=== PATIENT | male | born 1980 | race African-American/Black ===

== ENCOUNTER → 2017-02-02 | Outpatient (CLI) | payer MEDICARE, OTHER ==
[~2017-02-02] MED LIST: ATOR20TA58 PO; ATOR40TA PO; CYCL10TA2 PO; DICL75TA PO; FLUT16SP2 NS; HYDR-2762 PO; LITH300T3 PO
--- NOTE | 2017-02-08 23:16 | SLEEP ---
DATE OF STUDY: 02/02/2017 ATTENDING PHYSICIAN: Dr. Mynor Cooper The patient is a 36 years old who weighs 200 pounds with a BMI of 32. The patient had a history of sleep apnea diagnosed previously, but he could not use the CPAP, as a result it was taken away by his insurance. The patient returned to the sleep lab for another sleep study. This was a split night study. During the night study, the patient spent 450 minutes in bed and slept for 426 minutes with a normal sleep efficiency of 95%. Sleep latency was short at 1 minute with a REM latency of 76 minutes. Overall, sleep architecture showed increased stage I sleep, normal stage II sleep, normal slow wave and increased REM sleep. During the initial diagnostic portion of the study, the patient slept for 143 minutes. During this time, there were 169 obstructive apneas, no mixed or central apneas. There were 34 hypopneas. The patient's apnea hypopnea index was 85 per hour, supine index of 85 per hour as well. The patient slept supine throughout. REM AHI was 132 per hour. Review of nocturnal oximetry study revealed mean oxygen saturation of 94% with the lowest of 74%. A 11% time oxygen saturation remained between 80% and 89% and 3% time between 70 and 79%. The nocturnal hypoxia was predominantly during REM sleep. EKG monitoring revealed normal sinus rhythm. There was sweat artifact throughout. Average heart rate was 87 beats per minute. No sustained arrhythmias were observed. No PLMS seen. The patient met the criteria for CPAP initiation. It was started at 7 cm of water and titrated up to a maximum of 20 cm of water. Despite this high pressure the patient's respiratory events persisted, as a result, he was switched to BiPAP starting at 22/15 until a final pressure of 30/18 was reached. At that pressure, the patient slept for 38 minutes. Supine sleep was seen throughout. No REM sleep was observed. AHI was reduced to 2 per hour and oxygen saturation remained above 96%. The patient used a medium size full face mask. IMPRESSION: 1. Severe sleep apnea-hypopnea syndrome with an AHI of 85 per hour. 2. Nocturnal hypoxia secondary to obstructive sleep apnea, but resolved with BiPAP. 3. No clinically significant periodic limb movements in sleep. RECOMMENDATIONS: 1. BiPAP at 30/18 completely eliminated the patient's sleep apnea, should be used on a nightly basis. 2. Follow up in 4-6 weeks to assess compliance with BiPAP and to document clinical improvement. 3. Weight loss is strongly advised. 4. Avoid [employer] depressants. 5. Caution regarding driving until symptoms of sleep apnea resolve with the use of BiPAP. KALI GIRON MD DR: SHARI/jillian JOB#: [id number] / [id number] adriel Cooper, GIANFRANCO
== END | disposition home or self-care (01) ==
LOC: EDSTATUS 18:30 → RT 18:47
PROVIDERS: ATTEND Family Medicine
DX: G47.33 Obstructive sleep apnea (adult) (pediatric) (principal)
CPT/HCPCS: 95810

== ENCOUNTER → 2018-02-07 | Outpatient (CLI) | payer MEDICARE, OTHER | END | disposition home or self-care (01) | LOC: KCIC MRI 13:42 | DX: M48.061 Spinal stenosis, lumbar region without neurogenic claudication (principal); M51.27 Other intervertebral disc displacement, lumbosacral region; M51.47 Schmorl's nodes, lumbosacral region | CPT/HCPCS: 72148 ==

== ENCOUNTER → 2018-10-19 | Outpatient (CLI) | payer OTHER ==
[~2018-10-19] MED LIST changes: +DOCU100C28 PO; -HYDR-2762 PO; +HYDR-2765 PO; +HYDR-3135 PO; +IOHEXOL 180 MG/ML 10 ML VIAL. ONE; +LAMO150T2 PO; +METF500T16 PO; +QUET50TA5 PO; +TEST5GEL TP; +VALP250S3 PO; +methylPREDNISolone ACETATE 40 MG/ML VIAL. ONE; +methylPREDNISolone ACETATE 80 MG/ML VIAL. ONE
--- NOTE | 2018-10-19 23:18 | PAIN ---
DATE OF SERVICE: 10/19/2018 INITIAL CONSULTATION FOR PAIN CLINIC CHIEF COMPLAINT: Low back and bilateral lower extremity pain, left greater than right. HISTORY OF PRESENT ILLNESS: This is a 38-year-old male who presents with history of pain since about 2000, not a result of any specific injury or action he is aware of, but the pain in the low back, bilateral lower extremities, mostly in the posterior gluteus, posterior thighs, much greater on the left than the right, worse over the past year or so. The patient is on physical therapy. He is doing water therapy currently. Has had multiple bouts of this over the years, is still doing exercise and water therapy currently. The patient reports the pain is waking him from sleep at least twice at night and affects his bowel or bladder control as well, but no incontinence. The patient reports he has difficulty walking because his legs do get weak, especially the left side fatigues much more easily. It is worse with walking, standing, changing positions, getting up from a sitting position, better with lying down, but again awakens him from sleep at night at least twice. The patient reports the pain is constant, sharp in the back, shooting in the lower extremities with numbness and tingling in the legs, worse in the evenings later in the day when he is inactive and has a cold sensation as well in the low back, posterior gluteus, left thigh greater than right, left posterior calf on occasion and tingling into the feet, but worse with walking. No loss of motor function, but significant fatigability of the left lower extremity greater than the right, where he has stumbled, but has not fallen from the pain and increased fatigue in the legs. The patient did have an MRI scan of the lumbar spine showing L5-S1 shallow broad-based left paracentral disk protrusion with minimal extrusion superimposed on disk bulge, endplate remodeling resulting in minimal right and mild left foraminal stenosis with abutment of the exiting left L5 nerve root and slight effacement of the left lateral recess with abutment of the traversing left S1 nerve root. The patient rates his disability rate from 0-10, 10 being the worst, is a 7 with family home responsibilities, recreation, 6 with social activity and life support activities, 8 with sexual behavior, 5 with occupation, 4 with self-care activities. PAST MEDICAL HISTORY: Significant for type 2 diabetes, arthritis, cigarette smoking 1-1/2 packs a day, continues to smoke for the past 25 years. PREVIOUS SURGERY: Includes a bowel resection in 2016. CURRENT MEDICATIONS: Include Seroquel, lamotrigine, hydrocodone, atorvastatin, Flonase, cyclobenzaprine and diclofenac. ALLERGIES: The patient has no known drug allergies. FAMILY HISTORY: Significant for no major medical problems or conditions that he is aware of. SOCIAL HISTORY: The patient reports he drinks alcohol about 6 beers every 3 days. Smokes one and a half packs of cigarettes, has for 25 years. He is single, has no children, living at home, lives locally in [place], [place]. Reports he is currently on disability, not related to his current pain issue. REVIEW OF SYSTEMS: The patient's review of systems is positive for those items mentioned in history of present illness. All systems reviewed and otherwise negative. It is complete, full and well documented on the patient's chart. PHYSICAL EXAMINATION: VITAL SIGNS: Today, the patient's blood pressure is 145/93, pulse 80, respirations 18, temperature 98.3 degrees Fahrenheit, height 64 inches, weighs pounds. GENERAL: The patient is awake, alert, oriented, appropriate, very pleasant demeanor. HEENT: Shows normocephalic, atraumatic. Extraocular movements intact and symmetrical. Oral cavity: Mucous membranes moist and pink. Dentition is intact. NECK: Shows anterior throat supple without palpable lymphadenopathy noted. Swallow reflex is symmetrical. CHEST: Shows normal with inspection. Breath sounds are clear to auscultation bilaterally. HEART: Shows S1, S2 clear. No murmurs auscultated. ABDOMEN: Obese, soft, nontender, nondistended. No palpable organomegaly is noted. No rebound or guarding demonstrated. BACK: Shows spine grossly in the midline. Normal appearing thoracic kyphosis and lumbar lordotic curvature. Lumbar paraspinous muscle shows symmetrical on inspection, on palpation shows some moderate tenderness diffusely throughout the upper, middle and lower distribution of paraspinous muscles and only diffusely without radiation. The patient's back shows good rotation of motion both laterally greater than 10 degrees right and left as well as extension greater than 10 degrees, forward flexion 45 degrees without significant pain reported. EXTREMITIES: The patient's lower extremity showed deep tendon reflexes at 1+ in the patellar and tendo-calcaneus tendons are equal. Motor exam is strong with 5/5 dorsiflexion and extension on the right and 4/5 on the left. Quadriceps and hamstring flexion is 5/5 and equal and symmetrical. Peripheral pulses are 1+ posterior tibia and dorsalis pedis pulses. No peripheral edema is noted. Lower extremities are warm and dry to the touch, equal in color and appearance. The patient's straight leg raise noted to be slightly positive on the left side at about 40 degrees, decreased with knee flexion, right side is negative. Gaenslen's and Kel's maneuvers are negative bilaterally. The patient is able to stand, stand on his toes without difficulty or loss of balance, able to heel toe walk without balance loss as well. The patient not using any assistive device such as canes or walkers to ambulate and with a normal appearing gait for short distance in the office today. SKIN: Shows warm and dry, good turgor. No edema. No sores, rashes or bruising. IMPRESSION: 1. This is a 38-year-old male with long history of low back, bilateral lower extremity pain, left greater than right. 2. MRI scan of lumbar spine as noted. 3. Type 2 diabetes. 4. Cigarette smoking. 5. Arthritis. PLAN: Options were discussed with the patient including conservative medical management, physical therapy, interventional technique and he elected to proceed with interventional techniques. We discussed lumbar epidural steroid injection using description as well as anatomic models to describe the procedure. Risks were then discussed including, but not limited to bleeding, infection, possibility of epidural hematoma, subsequent neurologic compromise, dural puncture, headaches, spinal cord and/or nerve damage, side effects of steroid medication and poor results regarding pain control. The patient understands and wished to proceed. The patient will return to clinic in approximately 2 weeks for followup, was counseled on return appointment, activity level, and side effects to be aware of. DIAGNOSES: Lumbar radiculopathy with lumbar degenerative disk disease, lumbar spinal stenosis. PROCEDURE: Lumbar epidural steroid injection, translaminar approach at L5-S1 level using C-arm fluoroscopic guidance under sterile prep and drape using local anesthetic. MEDICATION INJECTED: A total of 120 mg Depo-Medrol plus 10 mL of preservative-free normal saline and 2 mL of Isovue for contrast. CONDITION AT DISCHARGE: Stable. The patient tolerated the procedure well, had no complications. VANIA BARAJAS MD DR: SILVIA/jillian JOB#: [id number] / [id number] Mynor Austin MD
== END | disposition home or self-care (01) ==
LOC: PNCL 10:15
PROVIDERS: ATTEND Anesthesiology
DX: M51.16 Intervertebral disc disorders with radiculopathy, lumbar region (principal); M48.061 Spinal stenosis, lumbar region without neurogenic claudication; E11.9 Type 2 diabetes mellitus without complications; M19.90 Unspecified osteoarthritis, unspecified site; F17.210 Nicotine dependence, cigarettes, uncomplicated; Z90.49 Acquired absence of other specified parts of digestive tract; Z79.899 Other long term (current) drug therapy; Z79.84 Long term (current) use of oral hypoglycemic drugs; Z72.89 Other problems related to lifestyle
CPT/HCPCS: 62323; J1030; J1040; Q9965

== ENCOUNTER → 2018-11-10 | Outpatient (CLI) | payer OTHER ==
[~2018-11-10] MED LIST changes: -IOHEXOL 180 MG/ML 10 ML VIAL. ONE; -methylPREDNISolone ACETATE 40 MG/ML VIAL. ONE; -methylPREDNISolone ACETATE 80 MG/ML VIAL. ONE
--- NOTE | 2018-11-10 11:20 | KCIC ---
MRI Lumbar Spine without contrast History: Spinal stenosis of lumbar region, chronic low back pain, recent epidurals, bilateral lower extremity pain Technique: Multiplanar, multi sequential noncontrast MR imaging was performed of the lumbar spine. Comparison: February 07, 2018 Findings: There is mild motion. Lumbar vertebral body stature is overall maintained other than small Schmorl's nodes L5-S1. AP alignment is within normal limits. There is again mild degenerative disc disease at L5-S1. There is posterior annular tear L5-S1 more apparent on this exam. There is no new significant marrow edema. Conus terminates at L1. L1-L2, L2-3: These levels were not included on the axial images, spinal canal and neural foramina adequate. L3-L4: There is minimal buckling of the ligamentum flavum. Spinal canal and neural foramina are adequate. L4-L5: There is again mild facet degenerative change and buckling of the ligamentum flavum. There is minimal fluid in the facet articulations. Spinal canal is adequate. Left neural foramen is adequate. There is very mild narrowing of the inferior right neural foramen greater distally by negligible disc osteophyte complex. L5-S1: There is slightly more prominent posterior protrusion and small extrusion extending slightly below the intervertebral disc space, overall dimension about 0.5 cm AP by 0.6 cm CC, component of protrusion up to 2 1.3 cm transverse. There is mild indentation upon the ventral thecal sac greater in the left lateral recess with contact of the descending left S1 nerve root as seen previously without significant displacement. This is also near the descending right S1 nerve root without significant impingement. Spinal canal is overall adequate. There is [id number] narrowing of left neural foramen due to disc osteophyte complex overall similar. Right neural foramen is adequate. Impression: 1. There is slightly more prominent protrusion/small extrusion at L5-S1, contact of the descending left S1 nerve root as seen previously and near descending right S1 nerve root without significant displacement or new significant spinal stenosis at this level. There is again dzjl-hw-fkzsyuyi narrowing of the left L5-S1 neural foramen primarily from disc osteophyte complex. There is again mild degenerative disc disease at L5-S1. Posterior annular tear L5-S1 is more apparent on this exam. Electronically signed by: Lloyd Nolan MD (11/10/2018 11:16 AM) [id number]
== END | disposition home or self-care (01) ==
LOC: KCIC MRI 10:02
PROVIDERS: ATTEND Family Medicine
DX: M51.37 Other intervertebral disc degeneration, lumbosacral region (principal); M48.061 Spinal stenosis, lumbar region without neurogenic claudication
CPT/HCPCS: 72148

== ENCOUNTER 2020-02-05 21:03 | Inpatient (IN) | payer OTHER ==
[~2020-02-05] VITALS: Ht 170.2 cm; Wt 90.4 kg
[~2020-02-05 21:03] MED LIST changes: -LAMO150T2 PO; +LAMO150T4 PO
[2020-02-05 21:28] LABS: BASO # 0.1 x10^3/uL (0.0-0.2); BASO % 1 % (0-3); EOS % 0 % (0-3); HEMATOCRIT 47.3 % (39.0-53.0); HEMOGLOBIN 15.9 g/dL (13.0-17.5); LYMPH # 1.3 x10^3/uL (1.0-4.8); LYMPH % 14 % (24-48); MEAN CORPUSCULAR HEMOGLOBIN 34 pg (25-35); MEAN CORPUSCULAR HGB CONC 34 g/dL (31-37); MEAN CORPUSCULAR VOLUME 101 fL (79-100); MONO # 0.7 x10^3/uL (0.0-1.1); MONO % 7 % (0-9); NEUT # 7.4 x10^3/uL (1.8-7.7); NEUT % 78 % (31-73); PLATELET COUNT 307 x10^3/uL (140-400); RED BLOOD COUNT 4.67 x10^6/uL (4.30-5.70); RED CELL DISTRIBUTION WIDTH 13.7 % (11.5-14.5); WHITE BLOOD COUNT 9.5 x10^3/uL (4.0-11.0)
[2020-02-05 21:41] LABS: BILIRUBIN,URINE NEGATIVE (NEG); CLARITY,URINE CLEAR; COLOR,URINE YELLOW; NITRITE,URINE NEGATIVE (NEG); PH,URINE 5.5 (<5.0-8.0); PROTEIN,URINE NEGATIVE (NEG-TRACE); UROBILINOGEN,URINE 0.2 mg/dL (0.2 mg/dL)
[2020-02-05 21:51] LABS: BACTERIA,URINE 0 /HPF (0-FEW); RBC,URINE 0 /HPF (0-2); WBC,URINE 0 /HPF (0-4)
[2020-02-05 21:54] LABS: ALBUMIN 3.7 g/dL (3.4-5.0); ALBUMIN/GLOBULIN RATIO 0.8 (1.0-1.7); CALCIUM 9.5 mg/dL (8.5-10.1); CREATININE 1.9 mg/dL (0.7-1.3); GFR 47.7; POTASSIUM 5.4 mmol/L (3.5-5.1); TOTAL BILIRUBIN 0.6 mg/dL (0.2-1.0); TOTAL PROTEIN 8.4 g/dL (6.4-8.2)
--- NOTE | 2020-02-05 21:54 | PHYS DOC ---
Past Medical History Past Medical History: Diabetes-Type II Past Surgical History: Other Additional Past Surgical Histo: ABDOMIN HERNIA Smoking Status: Current Every Day Smoker Alcohol Use: Heavy Adult General Chief Complaint Chief Complaint: DIZZY/LIGHT HEADED HPI HPI 39-year-old male with underlying history of hypertension, diabetes presents to the emergency department via EMS with complaints of dizziness. Patient states he has had dizziness ongoing for the last 4 days. He is well described no bowel movement x1 week. Patient states he has been out of his metformin x2 days. He describes nausea, vomiting intermittently. Patient denies any headache or visual changes at this time. He denies any chest pain or shortness of breath. Nothing is changed over the last 4 days, patient just states he is tired of feeling the way he is feeling. Blood pressures currently 170/78, saturations are 100% initial heart rate 116. Currently 105. Nothing makes his symptoms worse, nothing makes his symptoms better. Review of Systems Review of Systems Constitutional: Denies fever or chills [] Respiratory: Denies cough or shortness of breath [] Cardiovascular: No additional information not addressed in HPI [] GI: Denies abdominal pain, + nausea, vomiting, no bloody stools or diarrhea [] : Denies dysuria or hematuria [] Musculoskeletal: Denies back pain or joint pain [] Integument: Denies rash or skin lesions [] Neurologic: Denies headache, focal weakness or sensory changes [] All other systems were reviewed and found to be within normal limits, except as documented in this note. Current Medications Current Medications Current Medications Medications (Trade) Dose Ordered Sig/Belia Start Time Stop Time Status Last Admin Dose Admin Insulin Human Lispro (HumaLOG) 10 units 1X ONCE 02/05/20 22:00 02/05/20 22:01 DC Ondansetron HCl (Zofran) 4 mg 1X ONCE 02/05/20 22:30 02/05/20 22:31 Sodium Chloride 1,000 ml @ 1,000 mls/hr Q1H 02/05/20 22:00 02/05/20 22:59 Allergies Allergies Allergies Coded Allergies Type Severity Reaction Last Updated Verified No Known Drug Allergies 02/10/17 No Physical Exam Physical Exam Constitutional: Well developed, well nourished, no acute distress, non-toxic appearance. [] HENT: Normocephalic, atraumatic, bilateral external ears normal, oropharynx moist, no oral exudates, nose normal. [] Eyes: PERRLA, EOMI, conjunctiva normal, no discharge. [] Cardiovascular: Tachycardia Lungs & Thorax: Bilateral breath sounds clear to auscultation [] Abdomen: Bowel sounds normal, soft, distended, no masses, no pulsatile masses. [] Skin: Warm, dry, no erythema, no rash. [] Extremities: No tenderness, no edema. [] Neurologic: Alert and oriented X 3, no focal deficits noted. [] Psychologic: Affect normal, judgement normal, mood normal. [] Current Patient Data Vital Signs Vital Signs Date Time Temp Pulse Resp B/P (MAP) Pulse Ox O2 Delivery O2 Flow Rate FiO2 02/05/20 21:05 98.9 114 14 170/78 (108) 100 Room Air 98.9 Lab Values Laboratory Tests Test 02/05/20 21:15 02/05/20 21:33 White Blood Count 9.5 x10^3/uL (4.0-11.0) Red Blood Count 4.67 x10^6/uL (4.30-5.70) Hemoglobin 15.9 g/dL (13.0-17.5) Hematocrit 47.3 % (39.0-53.0) Mean Corpuscular Volume 101 fL (79-100) H Mean Corpuscular Hemoglobin 34 pg (25-35) Mean Corpuscular Hemoglobin Concent 34 g/dL (31-37) Red Cell Distribution Width 13.7 % (11.5-14.5) Platelet Count 307 x10^3/uL (140-400) Neutrophils (%) (Auto) 78 % (31-73) H Lymphocytes (%) (Auto) 14 % (24-48) L Monocytes (%) (Auto) 7 % (0-9) Eosinophils (%) (Auto) 0 % (0-3) Basophils (%) (Auto) 1 % (0-3) Neutrophils # (Auto) 7.4 x10^3/uL (1.8-7.7) Lymphocytes # (Auto) 1.3 x10^3/uL (1.0-4.8) Monocytes # (Auto) 0.7 x10^3/uL (0.0-1.1) Eosinophils # (Auto) 0.0 x10^3/uL (0.0-0.7) Basophils # (Auto) 0.1 x10^3/uL (0.0-0.2) Sodium Level 129 mmol/L (136-145) L Potassium Level 5.4 mmol/L (3.5-5.1) H Chloride Level 91 mmol/L (98-107) L Carbon Dioxide Level 13 mmol/L (21-32) L Anion Gap 25 (6-14) H Blood Urea Nitrogen 35 mg/dL (8-26) H Creatinine 1.9 mg/dL (0.7-1.3) H Estimated GFR (Cockcroft-Gault) 47.7 BUN/Creatinine Ratio 18 (6-20) Glucose Level 597 mg/dL (70-99) *H Calcium Level 9.5 mg/dL (8.5-10.1) Total Bilirubin 0.6 mg/dL (0.2-1.0) Aspartate Amino Transferase (AST) 18 U/L (15-37) Alanine Aminotransferase (ALT) 38 U/L (16-63) Alkaline Phosphatase 100 U/L (46-116) Total Protein 8.4 g/dL (6.4-8.2) H Albumin 3.7 g/dL (3.4-5.0) Albumin/Globulin Ratio 0.8 (1.0-1.7) L Acetone Level Sm pos (NEG) Urine Collection Type Unknown Urine Color Yellow Urine Clarity Clear Urine pH 5.5 (<5.0-8.0) Urine Specific [place] >=1.030 (1.000-1.030) Urine Protein Negative mg/dL (NEG-TRACE) Urine Glucose (UA) >=1000 mg/dL (NEG) Urine Ketones (Stick) >=80 mg/dL (NEG) Urine Blood Trace (NEG) Urine Nitrite Negative (NEG) Urine Bilirubin Negative (NEG) Urine Urobilinogen Dipstick 0.2 mg/dL (0.2 mg/dL) Urine Leukocyte Esterase Negative (NEG) Urine RBC 0 /HPF (0-2) Urine WBC 0 /HPF (0-4) Urine Bacteria 0 /HPF (0-FEW) Urine Mucus Slight /LPF Laboratory Tests 02/05/20 21:15 Laboratory Tests 02/05/20 21:15 EKG EKG [] Radiology/Procedures Radiology/Procedures [] Course & Med Decision Making Course & Med Decision Making Pertinent Labs and Imaging studies reviewed. (See chart for details) []39-year-old male with underlying history of hypertension, diabetes presents to the emergency department via EMS with complaints of dizziness. Patient states he has had dizziness ongoing for the last 4 days. He is well described no bowel movement x1 week. Patient states he has been out of his metformin x2 days. He describes nausea, vomiting intermittently. Patient denies any headache or visual changes at this time. He denies any chest pain or shortness of breath. Nothing is changed over the last 4 days, patient just states he is tired of feeling the way he is feeling. Blood pressures currently 170/78, saturations are 100% initial heart rate 116. Currently 105. Nothing makes his symptoms worse, nothing makes his symptoms better. Laboratory studies reviewed, imaging reviewed KUB negative Blood sugar 597, serum acetone positive, CO2 13, sodium 129, potassium 5.4, creatinine 1.9. Patient states he is not insulin-dependent or diagnosis type I however less likely have serum ketones with type 2 diabetes. We will initiate IV fluids, 10 units of subcu insulin, insulin drip Mag citrate p.o. for constipation Patient will be admitted to the hospital at this time with titration of insulin drip as needed. Dragon Disclaimer Dragon Disclaimer This electronic medical record was generated, in whole or in part, using a voice recognition dictation system. Departure Departure Impression: Primary Impression: DKA (diabetic ketoacidoses) Additional Impressions: Acute renal insufficiency Hypertension Constipation Disposition: 09 ADMITTED INPATIENT Admitting Physician: HIMS Condition: STABLE Referrals: RILEY HUSAIN MD (PCP) Critical Care Time Critical care time was 35 minutes exclusive of procedures. Problem Qualifiers Primary Impression: DKA (diabetic ketoacidoses) Diabetes mellitus type: type 2 Diabetes mellitus complication detail: without coma Qualified Codes: E11.10 - Type 2 diabetes mellitus with ketoacidosis without coma Additional Impressions: Hypertension Hypertension type: essential hypertension Qualified Codes: I10 - Essential (primary) hypertension Constipation Constipation type: unspecified constipation type Qualified Codes: K59.00 - Constipation, unspecified NETTIE GREEN MD Feb 05, 2020 21:54
--- NOTE | 2020-02-05 21:58 | RAD ---
Single view abdomen dated 02/05/2020. No comparison available. CLINICAL INDICATION: Abdominal pain and constipation for 2 weeks. FINDINGS: Single supine portable exam performed. Nondilated gas-filled loops of bowel throughout. No abnormal calcification. Small amount of stool within the colon. IMPRESSION: Nonobstructive bowel gas pattern. Electronically signed by: Mynor Ruiz MD (02/05/2020 9:56 PM) [id number]
[2020-02-05] MEDS ORDERED: INSULIN LISPRO 300 UNITS/3 ML VIAL. SQ ONE (22:00)
[2020-02-05] MEDS ORDERED: IV NORMAL SALINE 1000ML BAG 1,000 ML IV SCH ×2 (22:00→23:00)
[2020-02-05] MEDS ORDERED: POTASSIUM CHLORIDE 10MEQ 100 ML IV PRN ×3 (22:30)
[2020-02-05] MEDS ORDERED: POTASSIUM CHLORIDE 20 MEQ TABLET.ER. PO PRN ×3 (22:30)
[2020-02-05] MEDS ORDERED: ONDANSETRON PF 4 MG/2 ML VIAL. IVP ONE (22:30)
[2020-02-05] MEDS ORDERED: INSULIN REGULAR VIAL 100 UNIT in IV NORMAL SALINE 100ML 100 ML IV PRN (22:30)
[2020-02-05] MEDS ORDERED: MAGNESIUM CITRATE 296 ML SOLUTION. PO ONE (23:00)
[2020-02-06] VITALS (13 sets, daily range): BP systolic 102–137; BP diastolic 48–96
[2020-02-06] MEDS ORDERED: ONDANSETRON PF 4 MG/2 ML VIAL. IV PRN
[2020-02-06] MEDS ORDERED: ACETAMINOPHEN 325 MG TABLET. PO PRN
[2020-02-06] MEDS ORDERED: LABETALOL 20 MG/4 ML DISP.SYRIN. IVP ONE (00:30)
[2020-02-06 00:35] LABS: CALCIUM 9.1 mg/dL (8.5-10.1); CREATININE 1.6 mg/dL (0.7-1.3); GFR 58.2
--- NOTE | 2020-02-06 02:15 | NUR ---
Pt. arrived to ICU via w/c from ED w/ DKA. He is A/O x4 and will make needs known.
[2020-02-06] MEDS: IV DEXTROSE 5% - 0.9 % NACL 1,000 ML IV SCH ×4 (02:51→15:00)
[2020-02-06 04:58] LABS: BASO # 0.1 x10^3/uL (0.0-0.2); BASO % 1 % (0-3); EOS # 0.1 x10^3/uL (0.0-0.7); EOS % 1 % (0-3); HEMATOCRIT 42.7 % (39.0-53.0); HEMOGLOBIN 14.2 g/dL (13.0-17.5); LYMPH # 2.2 x10^3/uL (1.0-4.8); LYMPH % 20 % (24-48); MEAN CORPUSCULAR HEMOGLOBIN 33 pg (25-35); MEAN CORPUSCULAR HGB CONC 33 g/dL (31-37); MEAN CORPUSCULAR VOLUME 100 fL (79-100); MONO # 1.7 x10^3/uL (0.0-1.1); MONO % 15 % (0-9); NEUT # 7.1 x10^3/uL (1.8-7.7); NEUT % 64 % (31-73); PLATELET COUNT 264 x10^3/uL (140-400); RED BLOOD COUNT 4.29 x10^6/uL (4.30-5.70); RED CELL DISTRIBUTION WIDTH 13.5 % (11.5-14.5); WHITE BLOOD COUNT 11.2 x10^3/uL (4.0-11.0)
[2020-02-06 05:23] LABS: ALBUMIN 3.3 g/dL (3.4-5.0); CALCIUM 8.9 mg/dL (8.5-10.1); CREATININE 1.4 mg/dL (0.7-1.3); GFR 67.9; MAGNESIUM 3.1 mg/dL (1.8-2.4); PHOSPHORUS 3.6 mg/dL (2.6-4.7); POTASSIUM 5.4 mmol/L (3.5-5.1); TOTAL BILIRUBIN 0.4 mg/dL (0.2-1.0); TOTAL PROTEIN 6.6 g/dL (6.4-8.2)
--- NOTE | 2020-02-06 06:01 | EKG ---
[facility] [address] [place] [address] Test Date: 2020-02-05 Test Time: 21:18:40 Pat Name: JAILYN MASCORRO Department: Room: Gender: M [place]: : 1980 Requested By: NETTIE GREEN Order Number: [id number] Reading MD: Measurements Intervals [place] Rate: 113 P: 65 [place]: 138 QRS: -9 QRSD: 90 T: -5 QT: 326 QTc: 453 Interpretive Statements SINUS TACHYCARDIA LEFTWARD AXIS T ABNORMALITY IN INFERIOR LEADS ABNORMAL ECG RI6.01 No previous ECG available for comparison
[2020-02-06 10:24] LABS: CALCIUM 8.3 mg/dL (8.5-10.1); CREATININE 1.3 mg/dL (0.7-1.3); MAGNESIUM 2.5 mg/dL (1.8-2.4); PHOSPHORUS 1.8 mg/dL (2.6-4.7); POTASSIUM 4.1 mmol/L (3.5-5.1)
[2020-02-06] MEDS: INSULIN LISPRO 300 UNITS/3 ML VIAL. SQ SCH ×2 (12:10→17:01)
--- NOTE | 2020-02-06 14:07 | HP ---
ADMIT DATE: 02/06/2020 CHIEF COMPLAINT: Dizziness. HISTORY OF PRESENT ILLNESS: The patient is a pleasant 39-year-old male with known diabetes, who presented with dizziness, weakness, polyuria, and polydipsia. He is in DKA. He has been admitted to the ICU overnight. Now, he is doing better. I saw him and examined him here in the ICU. PAST MEDICAL HISTORY: Diabetes, hernia, and tobacco abuse. ALLERGIES: None. FAMILY HISTORY: Diabetes. SOCIAL HISTORY: He smokes. He does not drink or take drugs. MEDICATIONS: Reviewed. Please refer to the MRAD. REVIEW OF SYSTEMS: GENERAL: No history of weight change, weakness or fevers. SKIN: No bruising, hair changes or rashes. EYES: No blurred, double or loss of vision. NOSE AND THROAT: No history of nosebleeds, hoarseness or sore throat. HEART: No history of palpitations, chest pain or shortness of breath on exertion. LUNGS: Denies cough, hemoptysis, wheezing or shortness of breath. GASTROINTESTINAL: Denies changes in appetite, nausea, vomiting, diarrhea or constipation. GENITOURINARY: No history of frequency, urgency, hesitancy or nocturia. NEUROLOGIC: Denies history of numbness, tingling, tremor or weakness. PSYCHIATRIC: No history of panic, anxiety or depression. ENDOCRINE: No history of heat or cold intolerance, polyuria or polydipsia. EXTREMITIES: Denies muscle weakness, joint pain, pain on walking or stiffness. PHYSICAL EXAMINATION: VITALS: Within normal limits and are stable. GENERAL: No apparent distress. Alert and oriented. HEENT: Normal cephalic atraumatic, external auditory canals are patent EYES: Extraocular muscles are intact, pupils are equally round and reactive to light and accommodation MUSCULOSKELETAL: Well developed, well nourished, good range of motion ENDOCRINE: No thyromegaly was palpated LYMPHATICS: No cervical chain or axillary nodes were noted HEMATOPOIETIC: No bruising NECK: Supple, no JVD, no thyromegaly was noted. LUNGS: Clear to auscultation in all lung crocker without rhonchi or wheezing. HEART: RRR, S1, S2 present. Peripheral pulses intact, no obvious murmurs were noted. ABDOMEN: Soft, nontender. Positive bowel sounds no organomegaly, normal bowel sounds. EXTREMITIES: Without any cyanosis, clubbing, or edema. Pedal pulses intact, Homans sign is negative. NEUROLOGIC: Normal speech, normal tone. A & O x3, moves all extremities, no obvious focal deficits. PSYCHIATRIC: Normal affect, normal mood. Stable. SKIN: No ulcerations or rashes, good skin turgor, no jaundice. VASCULAR: Good capillary refill, neurovascular bundle appears to be intact. LABORATORY DATA: Anion gap was 25, is now down to normal. ASSESSMENT AND PLAN: Resolving diabetic ketoacidosis. We will go ahead and stop his drip and start him on subcutaneous insulin. Advance his diet. Home meds and DVT prophylaxis. Full code. Hope to discharge tomorrow. ICU monitoring now. I am going to go ahead and give the nurse permission to take off the insulin drip and put him on subcu. TAMMY BLEDSOE DO DR: BEENA/jillian JOB#: [id number] / [id number]
--- NOTE | 2020-02-06 17:17 | NUR ---
1530 fluids non admin as previous bag still running
[2020-02-06] MEDS ORDERED: INSULIN GLARGINE SYRINGE. SQ SCH (21:00)
[2020-02-07 03:00] VITALS: BP 113/66
[2020-02-07 07:00] VITALS: BP 145/62
[2020-02-07] MEDS: INSULIN LISPRO 300 UNITS/3 ML VIAL. SQ SCH ×2 (08:11→12:16)
--- NOTE | 2020-02-07 10:22 | PDOC ---
PROGRESS NOTES History of Present Illness History of Present Illness DISCHARGE DX ==== Resolving diabetic ketoacidosis. morbid obesity subcutaneous insulin. Advance diet. Home meds and DVT prophylaxis. Full code. med-surg monitoring now. 02/06 FEELS BETTER, ADA TYPE DIET DISCUSSED WANTS TO GO HOME TODAY D/C PLANNING 25 MIN Vitals Vitals Vital Signs Date Time Temp Pulse Resp B/P (MAP) Pulse Ox O2 Delivery O2 Flow Rate FiO2 02/07/20 07:00 98.0 88 17 145/62 (89) 95 Room Air 98.0 Physical Exam Physical Exam GENERAL: No apparent distress. Alert and oriented. HEENT: Normal cephalic atraumatic, external auditory canals are patent EYES: Extraocular muscles are intact, pupils are equally round and reactive to light and accommodation MUSCULOSKELETAL: Well developed, well nourished, good range of motion ENDOCRINE: No thyromegaly was palpated LYMPHATICS: No enlarged cervical chain nodes were noted HEMATOPOIETIC: No bruising NECK: Supple, no JVD, no thyromegaly was noted. LUNGS: Clear to auscultation in all lung crocker without rhonchi or wheezing. HEART: RRR, S1, S2 present. Peripheral pulses intact, no obvious murmurs were noted. ABDOMEN: Soft, nontender. Positive bowel sounds no organomegaly, normal bowel sounds. EXTREMITIES: Without any cyanosis, clubbing, or edema. Pedal pulses intact, Homans sign is negative. NEUROLOGIC: Normal speech, normal tone. A & O x3, moves all extremities, no obvious focal deficits. PSYCHIATRIC: Normal affect, normal mood. Stable. SKIN: No ulcerations or rashes, good skin turgor, no jaundice. VASCULAR: Good capillary refill, neurovascular bundle appears to be intact. General: Alert, Oriented X3, Cooperative, No acute distress Heart: Regular rate, Normal S1, Normal S2 Lungs: Clear Abdomen: Normal bowel sounds, Soft Extremities: No clubbing, No cyanosis Labs LABS Laboratory Tests Test 02/06/20 10:53 02/06/20 12:05 02/06/20 16:14 02/06/20 20:59 Glucose (Fingerstick) 139 mg/dL (70-99) 216 mg/dL (70-99) 261 mg/dL (70-99) 305 mg/dL (70-99) Assessment and Plan Assessmemt and Plan Problems Medical Problems: (1) Acute renal insufficiency Status: Acute (2) Constipation Status: Acute (3) DKA (diabetic ketoacidoses) Status: Acute (4) Hypertension Status: Acute Comment Review of Relevant I have reviewed the following items joshua (where applicable) has been applied. Labs Laboratory Tests Test 02/05/20 21:15 02/05/20 21:33 02/05/20 23:06 02/06/20 00:16 White Blood Count 9.5 x10^3/uL (4.0-11.0) Red Blood Count 4.67 x10^6/uL (4.30-5.70) Hemoglobin 15.9 g/dL (13.0-17.5) Hematocrit 47.3 % (39.0-53.0) Mean Corpuscular Volume 101 fL (79-100) Mean Corpuscular Hemoglobin 34 pg (25-35) Mean Corpuscular Hemoglobin Concent 34 g/dL (31-37) Red Cell Distribution Width 13.7 % (11.5-14.5) Platelet Count 307 x10^3/uL (140-400) Neutrophils (%) (Auto) 78 % (31-73) Lymphocytes (%) (Auto) 14 % (24-48) Monocytes (%) (Auto) 7 % (0-9) Eosinophils (%) (Auto) 0 % (0-3) Basophils (%) (Auto) 1 % (0-3) Neutrophils # (Auto) 7.4 x10^3/uL (1.8-7.7) Lymphocytes # (Auto) 1.3 x10^3/uL (1.0-4.8) Monocytes # (Auto) 0.7 x10^3/uL (0.0-1.1) Eosinophils # (Auto) 0.0 x10^3/uL (0.0-0.7) Basophils # (Auto) 0.1 x10^3/uL (0.0-0.2) Sodium Level 129 mmol/L (136-145) 137 mmol/L (136-145) Potassium Level 5.4 mmol/L (3.5-5.1) 5.0 mmol/L (3.5-5.1) Chloride Level 91 mmol/L (98-107) 102 mmol/L (98-107) Carbon Dioxide Level 13 mmol/L (21-32) 13 mmol/L (21-32) Anion Gap 25 (6-14) 22 (6-14) Blood Urea Nitrogen 35 mg/dL (8-26) 36 mg/dL (8-26) Creatinine 1.9 mg/dL (0.7-1.3) 1.6 mg/dL (0.7-1.3) Estimated GFR (Cockcroft-Gault) 47.7 58.2 BUN/Creatinine Ratio 18 (6-20) Glucose Level 597 mg/dL (70-99) 247 mg/dL (70-99) Calcium Level 9.5 mg/dL (8.5-10.1) 9.1 mg/dL (8.5-10.1) Magnesium Level 2.9 mg/dL (1.8-2.4) Total Bilirubin 0.6 mg/dL (0.2-1.0) Aspartate Amino Transf (AST/SGOT) 18 U/L (15-37) Alanine Aminotransferase (ALT/SGPT) 38 U/L (16-63) Alkaline Phosphatase 100 U/L (46-116) Total Protein 8.4 g/dL (6.4-8.2) Albumin 3.7 g/dL (3.4-5.0) Albumin/Globulin Ratio 0.8 (1.0-1.7) Acetone Level Sm pos (NEG) Urine Collection Type Unknown Urine Color Yellow Urine Clarity Clear Urine pH 5.5 (<5.0-8.0) Urine Specific [place] >=1.030 (1.000-1.030) Urine Protein Negative mg/dL (NEG-TRACE) Urine Glucose (UA) >=1000 mg/dL (NEG) Urine Ketones (Stick) >=80 mg/dL (NEG) Urine Blood Trace (NEG) Urine Nitrite Negative (NEG) Urine Bilirubin Negative (NEG) Urine Urobilinogen Dipstick 0.2 mg/dL (0.2 mg/dL) Urine Leukocyte Esterase Negative (NEG) Urine RBC 0 /HPF (0-2) Urine WBC 0 /HPF (0-4) Urine Bacteria 0 /HPF (0-FEW) Urine Mucus Slight /LPF Glucose (Fingerstick) 455 mg/dL (70-99) 196 mg/dL (70-99) Test 02/06/20 01:21 02/06/20 02:33 02/06/20 03:39 02/06/20 03:40 Glucose (Fingerstick) 177 mg/dL (70-99) 163 mg/dL (70-99) 127 mg/dL (70-99) Nasal Screen MRSA (PCR) Negative (Negative) Test 02/06/20 04:15 02/06/20 04:42 02/06/20 05:39 02/06/20 06:40 White Blood Count 11.2 x10^3/uL (4.0-11.0) Red Blood Count 4.29 x10^6/uL (4.30-5.70) Hemoglobin 14.2 g/dL (13.0-17.5) Hematocrit 42.7 % (39.0-53.0) Mean Corpuscular Volume 100 fL (79-100) Mean Corpuscular Hemoglobin 33 pg (25-35) Mean Corpuscular Hemoglobin Concent 33 g/dL (31-37) Red Cell Distribution Width 13.5 % (11.5-14.5) Platelet Count 264 x10^3/uL (140-400) Neutrophils (%) (Auto) 64 % (31-73) Lymphocytes (%) (Auto) 20 % (24-48) Monocytes (%) (Auto) 15 % (0-9) Eosinophils (%) (Auto) 1 % (0-3) Basophils (%) (Auto) 1 % (0-3) Neutrophils # (Auto) 7.1 x10^3/uL (1.8-7.7) Lymphocytes # (Auto) 2.2 x10^3/uL (1.0-4.8) Monocytes # (Auto) 1.7 x10^3/uL (0.0-1.1) Eosinophils # (Auto) 0.1 x10^3/uL (0.0-0.7) Basophils # (Auto) 0.1 x10^3/uL (0.0-0.2) Sodium Level 141 mmol/L (136-145) Potassium Level 5.4 mmol/L (3.5-5.1) Chloride Level 105 mmol/L (98-107) Carbon Dioxide Level 18 mmol/L (21-32) Anion Gap 18 (6-14) Blood Urea Nitrogen 32 mg/dL (8-26) Creatinine 1.4 mg/dL (0.7-1.3) Estimated GFR (Cockcroft-Gault) 67.9 BUN/Creatinine Ratio 23 (6-20) Glucose Level 141 mg/dL (70-99) Calcium Level 8.9 mg/dL (8.5-10.1) Phosphorus Level 3.6 mg/dL (2.6-4.7) Magnesium Level 3.1 mg/dL (1.8-2.4) Total Bilirubin 0.4 mg/dL (0.2-1.0) Aspartate Amino Transf (AST/SGOT) 29 U/L (15-37) Alanine Aminotransferase (ALT/SGPT) 39 U/L (16-63) Alkaline Phosphatase 82 U/L (46-116) Total Protein 6.6 g/dL (6.4-8.2) Albumin 3.3 g/dL (3.4-5.0) Albumin/Globulin Ratio 1.0 (1.0-1.7) Glucose (Fingerstick) 179 mg/dL (70-99) 195 mg/dL (70-99) 178 mg/dL (70-99) Test 02/06/20 07:46 02/06/20 09:01 02/06/20 10:00 02/06/20 10:53 Glucose (Fingerstick) 157 mg/dL (70-99) 120 mg/dL (70-99) 117 mg/dL (70-99) 139 mg/dL (70-99) Sodium Level 143 mmol/L (136-145) Potassium Level 4.1 mmol/L (3.5-5.1) Chloride Level 108 mmol/L (98-107) Carbon Dioxide Level 21 mmol/L (21-32) Anion Gap 14 (6-14) Blood Urea Nitrogen 21 mg/dL (8-26) Creatinine 1.3 mg/dL (0.7-1.3) Estimated GFR (Cockcroft-Gault) 74.0 Glucose Level 109 mg/dL (70-99) Calcium Level 8.3 mg/dL (8.5-10.1) Phosphorus Level 1.8 mg/dL (2.6-4.7) Magnesium Level 2.5 mg/dL (1.8-2.4) Test 02/06/20 12:05 3/17/20 16:14 02/06/20 20:59 Glucose (Fingerstick) 216 mg/dL (70-99) 261 mg/dL (70-99) 305 mg/dL (70-99) Laboratory Tests Test 02/06/20 10:53 02/06/20 12:05 02/06/20 16:14 02/06/20 20:59 Glucose (Fingerstick) 139 mg/dL (70-99) 216 mg/dL (70-99) 261 mg/dL (70-99) 305 mg/dL (70-99) Medications Current Medications Sodium Chloride 1,000 ml @ 1,000 mls/hr Q1H IV Last administered on 02/05/20at 22:00; Start 02/05/20 at 22:00; Stop 02/05/20 at 22:59; Status DC Insulin Human Lispro (HumaLOG) 10 units 1X ONCE SQ Last administered on at 22:53; Start 02/05/20 at 22:00; Stop 02/05/20 at 22:01; Status DC Ondansetron HCl (Zofran) 4 mg 1X ONCE IVP Last administered on 02/05/20at 22:53; Start 02/05/20 at 22:30; Stop 02/05/20 at 22:31; Status DC Magnesium Citrate (Citroma) 296 ml 1X ONCE PO Last administered on 02/05/20at 22:53; Start 02/05/20 at 23:00; Stop 02/05/20 at 23:01; Status DC Sodium Chloride 1,000 ml @ 1,000 mls/hr Q1H IV Last administered on 02/05/20at 22:53; Start 02/05/20 at 23:00; Stop 02/05/20 at 23:01; Status DC Insulin Human Regular 100 unit/ Sodium Chloride 101 ml @ 0 mls/hr CONT PRN PRN IV PER PROTOCOL Last administered on 02/05/20at 23:18; Start 02/05/20 at 22:30; Stop 02/06/20 at 11:41; Status DC Potassium Chloride/Water 100 ml @ 100 mls/hr PRN Q1HR PRN IV SEE COMMENTS; Start 02/05/20 at 22:30; Stop 02/06/20 at 11:41; Status DC Potassium Chloride/Water 100 ml @ 100 mls/hr PRN Q1HR PRN IV SEE COMMENTS; Start 02/05/20 at 22:30; Stop 02/06/20 at 11:41; Status DC Potassium Chloride/Water 100 ml @ 100 mls/hr PRN Q1HR PRN IV SEE COMMENTS; Start 02/05/20 at 22:30; Stop 02/06/20 at 11:41; Status DC Potassium Chloride (Klor-Con) 20 meq PRN Q1HR PRN PO K level is 4 to 5 mEq/L; Start 02/05/20 at 22:30 Potassium Chloride (Klor-Con) 40 meq PRN Q1HR PRN PO K level is 3 to 3.9 mEq/L; Start 02/05/20 at 22:30 Potassium Chloride (Klor-Con) 60 meq PRN Q1HR PRN PO K level < 3 mEq/L; Start 02/05/20 at 22:30 Ondansetron HCl (Zofran) 4 mg PRN Q8HRS PRN IV NAUSEA/VOMITING 1ST CHOICE; Start 02/06/20 at 00:00; Stop 02/06/20 at 23:59; Status DC Acetaminophen (Tylenol) 650 mg PRN Q4HRS PRN PO FEVER; Start 02/06/20 at 00:00; Stop 02/06/20 at 23:59; Status DC Labetalol HCl (Normodyne Iv Push) 10 mg 1X ONCE IVP Last administered on 02/06/20at 00:12; Start 02/06/20 at 00:30; Stop 02/06/20 at 00:31; Status DC Dextrose/Sodium Chloride 1,000 ml @ 75 mls/hr [id number] IV Last administered on 02/06/20at 10:53; Start 02/06/20 at 03:00 Insulin Human Lispro (HumaLOG) 10 units TIDWMEALS SQ Last administered on 02/07/20at 08:11; Start 02/06/20 at 12:00 Insulin Glargine (Lantus Syringe) 20 unit QHS SQ Last administered on 02/06/20at 21:15; Start 02/06/20 at 21:00 Active Scripts Active Reported Androgel (Testosterone) 5 Gm Gel.packet 1 Packet TP DAILY Valproic Acid (Valproate Sodium) 250 Mg/5 Ml Solution 250 Mg PO HS Metformin Hcl 500 Mg Tablet 500 Mg PO BIDWMEALS Docusate Sodium 100 Mg Capsule 1 Cap PO DAILY Atorvastatin Calcium 20 Mg Tablet 1 Tab PO DAILY Flonase (Fluticasone Propionate) 16 Gm [place].susp 2 [place] NS DAILY Diclofenac Sodium 75 Mg Tablet.dr 75 Mg PO BID Cyclobenzaprine Hcl 10 Mg Tablet 1 Tab PO TID Vitals/I & O Vital Sign - Last 24 Hours 02/06/20 02/06/20 02/06/20 02/06/20 11:00 15:00 19:00 19:00 Temp 98.1 98.6 98.2 97.9 98.1 98.6 98.2 97.9 Pulse 102 106 104 94 Resp 16 18 18 18 B/P (MAP) 109/50 (69) 134/70 (91) 137/96 (110) 113/67 (82) Pulse Ox 100 97 97 96 O2 Delivery Room Air Room Air Room Air Room Air 02/06/20 02/06/20 02/07/20 02/07/20 20:00 23:00 03:00 07:00 Temp 98.5 98.1 98.0 98.5 98.1 98.0 Pulse 99 97 88 Resp B/P (MAP) 137/92 (107) 113/66 (82) 145/62 (89) Pulse Ox 100 98 95 O2 Delivery Room Air Room Air Room Air Room Air Intake and Output 02/06/20 02/06/20 02/07/20 15:00 23:00 07:00 Intake Total 1210 ml 300 ml 250 ml Output Total 575 ml 1050 ml 2 ml Balance 635 ml -750 ml 248 ml ALIE NEELY MD Feb 07, 2020 10:22
--- NOTE | 2020-02-07 10:31 | NUR ---
SW following. Discussed with RN, pt from home, doing much better today. RN anticipates possible discharge home with self care today. SW will continue to follow.
[2020-02-07 10:42] VITALS: BP 142/68
--- NOTE | 2020-02-07 14:55 | PDOC3 ---
Discharge Summary Date of Admission: Feb 06, 2020 Date of Discharge: Feb 07, 2020 Follow-Up: 3-5 days Admitting Diagnosis comment: DISCHARGE DX ==== Resolving diabetic ketoacidosis. morbid obesity subcutaneous insulin. Advance diet. Home meds and DVT prophylaxis. Full code. med-surg monitoring now. 02/06 FEELS BETTER, ADA TYPE DIET DISCUSSED WANTS TO GO HOME TODAY D/C PLANNING 25 MIN Vitals Vitals Vital Signs Date Time Temp Pulse Resp B/P (MAP) Pulse Ox O2 Delivery O2 Flow Rate FiO2 02/07/20 07:00 98.0 88 17 145/62 (89) 95 Room Air 98.0 Physical Exam Physical Exam GENERAL: No apparent distress. Alert and oriented. HEENT: Normal cephalic atraumatic, external auditory canals are patent EYES: Extraocular muscles are intact, pupils are equally round and reactive to light and accommodation MUSCULOSKELETAL: Well developed, well nourished, good range of motion ENDOCRINE: No thyromegaly was palpated LYMPHATICS: No enlarged cervical chain nodes were noted HEMATOPOIETIC: No bruising NECK: Supple, no JVD, no thyromegaly was noted. LUNGS: Clear to auscultation in all lung crocker without rhonchi or wheezing. HEART: RRR, S1, S2 present. Peripheral pulses intact, no obvious murmurs were noted. ABDOMEN: Soft, nontender. Positive bowel sounds no organomegaly, normal bowel sounds. EXTREMITIES: Without any cyanosis, clubbing, or edema. Pedal pulses intact, Homans sign is negative. NEUROLOGIC: Normal speech, normal tone. A & O x3, moves all extremities, no obvious focal deficits. PSYCHIATRIC: Normal affect, normal mood. Stable. SKIN: No ulcerations or rashes, good skin turgor, no jaundice. VASCULAR: Good capillary refill, neurovascular bundle appears to be intact. General: Alert, Oriented X3, Cooperative, No acute distress Heart: Regular rate, Normal S1, Normal S2 Lungs: Clear Abdomen: Normal bowel sounds, Soft Extremities: No clubbing, No cyanosis Labs LABS Laboratory Tests Test 02/06/20 10:53 02/06/20 12:05 02/06/20 16:14 02/06/20 20:59 Glucose (Fingerstick) 139 mg/dL (70-99) 216 mg/dL (70-99) 261 mg/dL (70-99) 305 mg/dL (70-99) Assessment and Plan Assessmemt and Plan Problems Medical Problems: (1) Acute renal insufficiency Status: Acute (2) Constipation Status: Acute (3) DKA (diabetic ketoacidoses) Status: Acute (4) Hypertension Status: Acute FINAL DIAGNOSIS Problems Medical Problems: (1) Acute renal insufficiency Status: Acute (2) Constipation Status: Acute (3) DKA (diabetic ketoacidoses) Status: Acute (4) Hypertension Status: Acute Brief Hospital Course Mr. Lozoya is a 39 old [sex] who presented with [ DKA] CONDITION AT DISCHARGE: Improved Discharge Medications Current Medications Sodium Chloride 1,000 ml @ 1,000 mls/hr Q1H IV Last administered on 02/05/20at 22:00; Start 02/05/20 at 22:00; Stop 02/05/20 at 22:59; Status DC Insulin Human Lispro (HumaLOG) 10 units 1X ONCE SQ Last administered on 02/05/20at 22:53; Start 02/05/20 at 22:00; Stop 02/05/20 at 22:01; Status DC Ondansetron HCl (Zofran) 4 mg 1X ONCE IVP Last administered on 02/05/20at 22:53; Start 02/05/20 at 22:30; Stop 02/05/20 at 22:31; Status DC Magnesium Citrate (Citroma) 296 ml 1X ONCE PO Last administered on 02/05/20at 22:53; Start 02/05/20 at 23:00; Stop 02/05/20 at 23:01; Status DC Sodium Chloride 1,000 ml @ 1,000 mls/hr Q1H IV Last administered on 02/05/20at 22:53; Start 02/05/20 at 23:00; Stop 02/05/20 at 23:01; Status DC Insulin Human Regular 100 unit/ Sodium Chloride 101 ml @ 0 mls/hr CONT PRN PRN IV PER PROTOCOL Last administered on 02/05/20at 23:18; Start 02/05/20 at 22:30; Stop 02/06/20 at 11:41; Status DC Potassium Chloride/Water 100 ml @ 100 mls/hr PRN Q1HR PRN IV SEE COMMENTS; Start 02/05/20 at 22:30; Stop 02/06/20 at 11:41; Status DC Potassium Chloride/Water 100 ml @ 100 mls/hr PRN Q1HR PRN IV SEE COMMENTS; Start 02/05/20 at 22:30; Stop 02/06/20 at 11:41; Status DC Potassium Chloride/Water 100 ml @ 100 mls/hr PRN Q1HR PRN IV SEE COMMENTS; Start 02/05/20 at 22:30; Stop 02/06/20 at 11:41; Status DC Potassium Chloride (Klor-Con) 20 meq PRN Q1HR PRN PO K level is 4 to 5 mEq/L; Start 02/05/20 at 22:30 Potassium Chloride (Klor-Con) 40 meq PRN Q1HR PRN PO K level is 3 to 3.9 mEq/L; Start 02/05/20 at 22:30 Potassium Chloride (Klor-Con) 60 meq PRN Q1HR PRN PO K level < 3 mEq/L; Start 02/05/20 at 22:30 Ondansetron HCl (Zofran) 4 mg PRN Q8HRS PRN IV NAUSEA/VOMITING 1ST CHOICE; Start 02/06/20 at 00:00; Stop 02/06/20 at 23:59; Status DC Acetaminophen (Tylenol) 650 mg PRN Q4HRS PRN PO FEVER; Start 02/06/20 at 00:00; Stop 02/06/20 at 23:59; Status DC Labetalol HCl (Normodyne Iv Push) 10 mg 1X ONCE IVP Last administered on 02/06/20at 00:12; Start 02/06/20 at 00:30; Stop 02/06/20 at 00:31; Status DC Dextrose/Sodium Chloride 1,000 ml @ 75 mls/hr [id number] IV Last administered on 02/06/20at 10:53; Start 02/06/20 at 03:00 Insulin Human Lispro (HumaLOG) 10 units TIDWMEALS SQ Last administered on 02/07/20at 12:16; Start 02/06/20 at 12:00 Insulin Glargine (Lantus Syringe) 20 unit QHS SQ Last administered on 02/06/20at 21:15; Start 02/06/20 at 21:00 Active Scripts Active Reported Androgel (Testosterone) 5 Gm Gel.packet 1 Packet TP DAILY Valproic Acid (Valproate Sodium) 250 Mg/5 Ml Solution 250 Mg PO HS Metformin Hcl 500 Mg Tablet 500 Mg PO BIDWMEALS Docusate Sodium 100 Mg Capsule 1 Cap PO DAILY Atorvastatin Calcium 20 Mg Tablet 1 Tab PO DAILY Flonase (Fluticasone Propionate) 16 Gm [place].susp 2 [place] NS DAILY Diclofenac Sodium 75 Mg Tablet.dr 75 Mg PO BID Cyclobenzaprine Hcl 10 Mg Tablet 1 Tab PO TID Vital Signs Vital Signs Date Time Temp Pulse Resp B/P (MAP) Pulse Ox O2 Delivery O2 Flow Rate FiO2 02/07/20 10:42 98.0 89 17 142/68 (92) 95 Room Air 98.0 Labs Laboratory Tests Test 02/05/20 21:15 02/05/20 21:33 02/05/20 23:06 02/06/20 00:16 White Blood Count 9.5 x10^3/uL (4.0-11.0) Red Blood Count 4.67 x10^6/uL (4.30-5.70) Hemoglobin 15.9 g/dL (13.0-17.5) Hematocrit 47.3 % (39.0-53.0) Mean Corpuscular Volume 101 fL (79-100) Mean Corpuscular Hemoglobin 34 pg (25-35) Mean Corpuscular Hemoglobin Concent 34 g/dL (31-37) Red Cell Distribution Width 13.7 % (11.5-14.5) Platelet Count 307 x10^3/uL (140-400) Neutrophils (%) (Auto) 78 % (31-73) Lymphocytes (%) (Auto) 14 % (24-48) Monocytes (%) (Auto) 7 % (0-9) Eosinophils (%) (Auto) 0 % (0-3) Basophils (%) (Auto) 1 % (0-3) Neutrophils # (Auto) 7.4 x10^3/uL (1.8-7.7) Lymphocytes # (Auto) 1.3 x10^3/uL (1.0-4.8) Monocytes # (Auto) 0.7 x10^3/uL (0.0-1.1) Eosinophils # (Auto) 0.0 x10^3/uL (0.0-0.7) Basophils # (Auto) 0.1 x10^3/uL (0.0-0.2) Sodium Level 129 mmol/L (136-145) 137 mmol/L (136-145) Potassium Level 5.4 mmol/L (3.5-5.1) 5.0 mmol/L (3.5-5.1) Chloride Level 91 mmol/L (98-107) 102 mmol/L (98-107) Carbon Dioxide Level 13 mmol/L (21-32) 13 mmol/L (21-32) Anion Gap 25 (6-14) 22 (6-14) Blood Urea Nitrogen 35 mg/dL (8-26) 36 mg/dL (8-26) Creatinine 1.9 mg/dL (0.7-1.3) 1.6 mg/dL (0.7-1.3) Estimated GFR (Cockcroft-Gault) 47.7 58.2 BUN/Creatinine Ratio 18 (6-20) Glucose Level 597 mg/dL (70-99) 247 mg/dL (70-99) Calcium Level 9.5 mg/dL (8.5-10.1) 9.1 mg/dL (8.5-10.1) Magnesium Level 2.9 mg/dL (1.8-2.4) Total Bilirubin 0.6 mg/dL (0.2-1.0) Aspartate Amino Transf (AST/SGOT) 18 U/L (15-37) Alanine Aminotransferase (ALT/SGPT) 38 U/L (16-63) Alkaline Phosphatase 100 U/L (46-116) Total Protein 8.4 g/dL (6.4-8.2) Albumin 3.7 g/dL (3.4-5.0) Albumin/Globulin Ratio 0.8 (1.0-1.7) Acetone Level Sm pos (NEG) Urine Collection Type Unknown Urine Color Yellow Urine Clarity Clear Urine pH 5.5 (<5.0-8.0) Urine Specific [place] >=1.030 (1.000-1.030) Urine Protein Negative mg/dL (NEG-TRACE) Urine Glucose (UA) >=1000 mg/dL (NEG) Urine Ketones (Stick) >=80 mg/dL (NEG) Urine Blood Trace (NEG) Urine Nitrite Negative (NEG) Urine Bilirubin Negative (NEG) Urine Urobilinogen Dipstick 0.2 mg/dL (0.2 mg/dL) Urine Leukocyte Esterase Negative (NEG) Urine RBC 0 /HPF (0-2) Urine WBC 0 /HPF (0-4) Urine Bacteria 0 /HPF (0-FEW) Urine Mucus Slight /LPF Glucose (Fingerstick) 455 mg/dL (70-99) 196 mg/dL (70-99) Test 02/06/20 01:21 02/06/20 02:33 02/06/20 03:39 02/06/20 03:40 Glucose (Fingerstick) 177 mg/dL (70-99) 163 mg/dL (70-99) 127 mg/dL (70-99) Nasal Screen MRSA (PCR) Negative (Negative) Test 02/06/20 04:15 02/06/20 04:42 02/06/20 05:39 02/06/20 06:40 White Blood Count 11.2 x10^3/uL (4.0-11.0) Red Blood Count 4.29 x10^6/uL (4.30-5.70) Hemoglobin 14.2 g/dL (13.0-17.5) Hematocrit 42.7 % (39.0-53.0) Mean Corpuscular Volume 100 fL (79-100) Mean Corpuscular Hemoglobin 33 pg (25-35) Mean Corpuscular Hemoglobin Concent 33 g/dL (31-37) Red Cell Distribution Width 13.5 % (11.5-14.5) Platelet Count 264 x10^3/uL (140-400) Neutrophils (%) (Auto) 64 % (31-73) Lymphocytes (%) (Auto) 20 % (24-48) Monocytes (%) (Auto) 15 % (0-9) Eosinophils (%) (Auto) 1 % (0-3) Basophils (%) (Auto) 1 % (0-3) Neutrophils # (Auto) 7.1 x10^3/uL (1.8-7.7) Lymphocytes # (Auto) 2.2 x10^3/uL (1.0-4.8) Monocytes # (Auto) 1.7 x10^3/uL (0.0-1.1) Eosinophils # (Auto) 0.1 x10^3/uL (0.0-0.7) Basophils # (Auto) 0.1 x10^3/uL (0.0-0.2) Sodium Level 141 mmol/L (136-145) Potassium Level 5.4 mmol/L (3.5-5.1) Chloride Level 105 mmol/L (98-107) Carbon Dioxide Level 18 mmol/L (21-32) Anion Gap 18 (6-14) Blood Urea Nitrogen 32 mg/dL (8-26) Creatinine 1.4 mg/dL (0.7-1.3) Estimated GFR (Cockcroft-Gault) 67.9 BUN/Creatinine Ratio 23 (6-20) Glucose Level 141 mg/dL (70-99) Calcium Level 8.9 mg/dL (8.5-10.1) Phosphorus Level 3.6 mg/dL (2.6-4.7) Magnesium Level 3.1 mg/dL (1.8-2.4) Total Bilirubin 0.4 mg/dL (0.2-1.0) Aspartate Amino Transf (AST/SGOT) 29 U/L (15-37) Alanine Aminotransferase (ALT/SGPT) 39 U/L (16-63) Alkaline Phosphatase 82 U/L (46-116) Total Protein 6.6 g/dL (6.4-8.2) Albumin 3.3 g/dL (3.4-5.0) Albumin/Globulin Ratio 1.0 (1.0-1.7) Glucose (Fingerstick) 179 mg/dL (70-99) 195 mg/dL (70-99) 178 mg/dL (70-99) Test 02/06/20 07:46 02/06/20 09:01 02/06/20 10:00 02/06/20 10:53 Glucose (Fingerstick) 157 mg/dL (70-99) 120 mg/dL (70-99) 117 mg/dL (70-99) 139 mg/dL (70-99) Sodium Level 143 mmol/L (136-145) Potassium Level 4.1 mmol/L (3.5-5.1) Chloride Level 108 mmol/L (98-107) Carbon Dioxide Level 21 mmol/L (21-32) Anion Gap 14 (6-14) Blood Urea Nitrogen 21 mg/dL (8-26) Creatinine 1.3 mg/dL (0.7-1.3) Estimated GFR (Cockcroft-Gault) 74.0 Glucose Level 109 mg/dL (70-99) Calcium Level 8.3 mg/dL (8.5-10.1) Phosphorus Level 1.8 mg/dL (2.6-4.7) Magnesium Level 2.5 mg/dL (1.8-2.4) Test 02/06/20 12:05 02/06/20 16:14 02/06/20 20:59 02/07/20 07:19 Glucose (Fingerstick) 216 mg/dL (70-99) 261 mg/dL (70-99) 305 mg/dL (70-99) 224 mg/dL (70-99) Test 02/07/20 11:26 Glucose (Fingerstick) 178 mg/dL (70-99) Laboratory Tests Test 02/06/20 16:14 02/06/20 20:59 02/07/20 07:19 02/07/20 11:26 Glucose (Fingerstick) 261 mg/dL (70-99) 305 mg/dL (70-99) 224 mg/dL (70-99) 178 mg/dL (70-99) Allergies Allergies Coded Allergies Type Severity Reaction Last Updated Verified No Known Drug Allergies 02/10/17 No Disposition/Orders: D/C to Home ALIE NEELY MD Feb 07, 2020 14:55
[2020-02-07] MEDS ORDERED: INSU100I11 SQ (14:57)
[2020-02-07] MEDS ORDERED: INSU100V8 SQ (14:57)
--- NOTE | 2020-02-07 14:58 | DISCH ---
DISCHARGE INSTRUCTIONS Condition on Discharge Condition on Discharge: Stable Activity After Discharge Activity Instructions for Disc: Activity as tolerated Driving Instructions after Dis: Do not drive today Diet after Discharge Diet after Discharge: Diabetic No Calorie Level Checks after Discharge Checks after discharge: Check blood press - daily Contacting the after DC Call your doctor for: If your condition worsens Warfarin Follow-Up Warfarin Follow UP: SEE PCP ALIE GRAJEDA MD Feb 07, 2020 14:58
[2020-02-07 15:00] VITALS: BP 138/62
[2020-02-07] MEDS ORDERED: DOCUSATE SODIUM 100 MG CAPSULE. PO SCH (16:00)
--- NOTE | 2020-02-07 16:45 | NUR ---
DISCHARGE INSTRUCTIONS GIVEN, QUESTIONS AND CONCERNS ANSWERED, PATIENT VERBALIZED UNDERSTANDING OF DISCHARGE INFORMATION INCLUDING TAKING ALL MEDICATIONS INSTRUCTED AND FOLLOWING UP WITH HIS PRIMARY PROVIDER KIRIT. PATIENT ENCOURAGED TO CHECK HIS BLOOD SUGAR LEVELS BEFORE MEALS AND AT BEDTIME AND TO RECORD THE AMOUNTS TO TAKE TO HIS PRIMARY DOCTOR ON HIS F/U APPOINTMENT, PATIENT AGREED.
[2020-02-07] MEDS ORDERED: metFORMIN 500 MG TABLET PO SCH (17:00)
--- NOTE | 2020-02-07 17:15 | NUR ---
PATIENT LEAVES THE UNIT PER W/C, EMOTIONAL SUPPORT GIVEN, F/U APPOINTMENTS ENCOURAGED.
[2020-02-07] MEDS ORDERED: ATORVASTATIN CALCIUM 20 MG TABLET PO SCH (21:00)
[2020-02-07] MEDS ORDERED: VALPROIC ACID 250 MG CAPSULE. PO SCH (21:00)
[2020-02-07] MEDS ORDERED: DICLOFENAC SODIUM 25 MG TABLET.DR PO SCH (21:00)
[2020-02-08] MEDS ORDERED: NON FORMULARY ITEM (Testosterone (Androgel) 1 PACKET) TP SCH (09:00)
[2020-02-08] MEDS ORDERED: FLUTICASONE 50MCG/NASAL SPRAY 16GM BOTTLE. NS SCH (09:00)
== END 2020-02-07 17:15 | disposition home or self-care (01) | DRG 637 ==
LOC: ER 21:03 → 1 WEST ICU 22:25 → 5 SOUTH 02-06 12:40
PROVIDERS: ADMIT Internal Medicine; ATTEND Internal Medicine
DX: E11.10 Type 2 diabetes mellitus with ketoacidosis without coma (principal); N17.0 Acute kidney failure with tubular necrosis; E66.01 Morbid (severe) obesity due to excess calories; F17.200 Nicotine dependence, unspecified, uncomplicated; I10 Essential (primary) hypertension; K59.00 Constipation, unspecified; Z83.3 Family history of diabetes mellitus; Z68.31 Body mass index [BMI] 31.0-31.9, adult
CPT/HCPCS: 36415; 74018; 80048; 80053; 81001; 82010; 82962; 83735; 84100; 85025; 87641; 93005; 96361; 96365; 96366; 96372; 96375; 99291; J1815; J2405; J3490; J7030; J7042; G0378